=== PATIENT | male | born 2000 | race Two or more races ===

== ENCOUNTER 2024-06-15 04:14 | Emergency (ER) | payer OTHER ==
[~2024-06-15] VITALS: Ht 172.7 cm; Wt 75.0 kg
[2024-06-15 04:22] VITALS: O2SAT 100
[2024-06-15 04:26] VITALS: BP 113/78; PULSE 73; RESP 16; TEMP 97.8; O2SAT 100
== END 2024-06-15 05:53 | disposition home or self-care (01) ==
LOC: ER 04:14
DX: H61.21 Impacted cerumen, right ear (principal)
CPT/HCPCS: 99282